=== PATIENT | female | born 1970 | race African-American/Black ===

== ENCOUNTER 2017-09-09 22:03 | Emergency (ER) | payer OTHER ==
[~2017-09-09] VITALS: Ht 170.2 cm; Wt 104.4 kg
[2017-09-09 22:48] LABS: HEMATOCRIT 32.2 % (36.0-46.0); HEMOGLOBIN 10.1 G/DL (11.9-15.5); MCHC 31.4 G/DL (30.0-36.0); MCV 76.5 FL (83-99); PLATELET COUNT 538 K/uL (156-360); RBC DIS.WIDTH-CV 17.8 % (11.8-14.6); RBC DIS.WIDTH-SD 49.3 % (39-53); RED BLOOD COUNT 4.21 M/uL (3.80-5.20); WHITE BLOOD COUNT 8.8 K/uL (4.1-10.2)
[2017-09-09 22:58] LABS: CHLORIDE 109 mEq/L (99-109); SODIUM 143 mEq/L (136-147)
[2017-09-09 23:00] LABS: GLUCOSE 102 mg/dL (70-99)
[2017-09-09 23:04] LABS: CREATININE 0.8 mg/dL (0.6-1.3)
[2017-09-09 23:05] LABS: UREA NITROGEN (BUN) 21 mg/dL (9-23)
[2017-09-09 23:16] LABS: GFR ESTIMATE (CALCULATED) > 59 mL/min/
[2017-09-10] MEDS ORDERED: ZOFRAN4 MG PO (00:23)
[2017-09-10 01:59] VITALS: BP 104/58
== END 2017-09-10 02:01 | disposition home or self-care (01) ==
LOC: EME 22:03
DX: B34.9 Viral infection, unspecified (principal); R11.2 Nausea with vomiting, unspecified
CPT/HCPCS: 71046; 80048; 85027; 99281; 99285; J2405; J7030

== ENCOUNTER 2018-02-14 12:19 | Emergency (ER) | payer OTHER ==
[~2018-02-14] VITALS: Ht 170.2 cm; Wt 100.0 kg
[~2018-02-14 12:19] MED LIST: ZOFRAN4 MG PO
[2018-02-14] MEDS ORDERED: NORCO 5/3251 TABLET PO (13:34)
[2018-02-14] MEDS ORDERED: FLEXERIL10 MG PO (13:34)
[2018-02-14 13:50] VITALS: BP 115/76
== END 2018-02-14 13:51 | disposition home or self-care (01) ==
LOC: EME 12:19
DX: M54.5 Low back pain (principal); J45.909 Unspecified asthma, uncomplicated
CPT/HCPCS: 99281; 99283